=== PATIENT | female | born 1995 | race Caucasian/White ===

== ENCOUNTER 2024-07-19 18:54 | Emergency (ER) | payer OTHER ==
[~2024-07-19] VITALS: Ht 172.7 cm; Wt 64.3 kg
[2024-07-19 18:57] VITALS: O2SAT 99
[2024-07-19 19:22] VITALS: BP 106/66; PULSE 101; RESP 18; TEMP 37.7; O2SAT 100
[2024-07-19] MEDS ORDERED: AMOX1TAB16 MT (22:18)
[2024-07-19 23:09] VITALS: TEMP 99.8
[2024-07-19] MEDS: ACETAMINOPHEN 325MG TABLET PO ONE (23:09)
== END 2024-07-19 23:20 | disposition home or self-care (01) ==
LOC: ER 18:54
DX: J32.9 Chronic sinusitis, unspecified (principal); Z88.2 Allergy status to sulfonamides
CPT/HCPCS: 71045; 99283